=== PATIENT | male | born 1970 | race African-American/Black ===

== ENCOUNTER → 2020-01-03 | Outpatient (CLI) | payer OTHER ==
[2020-01-03 11:09] VITALS: BP 110/68
--- NOTE | 2020-01-03 11:09 | ER [facility] ASSESSMENT REPORT ---
Intake - In the Last 14 days Have you traveled outside [place]?: No Have you been in close contact with someone CONFIRMED: No Worked in Healthcare?: No - Symptoms Subjective Fever([place] feverish): No Chills: No Muscule Aches: No Runny Nose: No Sore Throat: No Cough (New or worsening chronic cough): No Shortness of breath: No Nausea or Vomiting: No Headache: No Abdominal Pain: No Diarrhea(3 or more loose stools in last 24 hours): No - Do you have any of the following Chronic lung disease: Asthma or emphysema or COPD: No Cystic Fibrosis: No Diabetes: No High Blood Pressure: No Cardiovascular Disease: No Chronic Kidney Disease: No Chronic Liver Disease: No Chronic blood disorder like Sickle Cell Disease: No Weak immune system due to disease or medication: No Neurologic condition that limits movement: No Developmental delay - Moderate to Severe: No Morbid Obesity (>100 pounds over ideal weight): No - Objective Temperature: 97.8 F Pulse Rate: 65 Respiratory Rate: 18 Blood Pressure: 110/68 O2 Sat by Pulse Oximetry: 97 Objective: Given above, testing performed: covid Disposition: Home; Selfcare General - General Stated Complaint: covid testing Time Seen by Provider: 01/03/20 10:20 Mode of Arrival: Ambulatory Information source: Patient - [facility] Notes: -year-old male presents [facility] clinic for COVID-19 testing. Patient reports no known contact with COVID positive individual. Patient reports he did have symptoms from 12/30 to 01/02/2020 of fever with T-max 101.0, chills. Patient states the symptoms resolved yesterday afternoon and he is currently asymptomatic. Denies any myalgia, runny nose, sore throat, cough, shortness of breath, GI upset, or headache. Past Medical History - General Information source: Patient - Social History Smoking Status: Former Smoker - Past Medical History Cardiac Medical History: Reports: None Pulmonary Medical History: Reports: None EENT Medical History: Reports: None Neurological Medical History: Reports: None Endocrine Medical History: Reports: None Renal/ Medical History: Reports: None Malignancy Medical History: Reports None GI Medical History: Reports: None Musculoskeletal Medical History: Reports None Skin Medical History: Reports None Psychiatric Medical History: Reports: None Traumatic Medical History: Reports: None Infectious Medical History: Reports: None Past Surgical History: Reports: None Physical Exam - General General appearance: Appears well, Alert In distress: None Notes: PHYSICAL EXAMINATION: GENERAL: Well-appearing and in no acute distress. HEAD: Atraumatic, normocephalic. EYES: sclera anicteric, conjunctiva are normal. ENT: nares patent. Moist mucous membranes. NECK: Normal range of motion, supple without lymphadenopathy. LUNGS: No increased work of breathing. Lung sounds CTAB and equal. No wheezes rales or rhonchi. HEART: Regular rate and rhythm without murmurs. ABDOMEN: Soft, nontender, normal bowel sounds, no guarding. EXTREMITIES: Normal range of motion, no pitting edema. No cyanosis. NEUROLOGICAL: A&O x 3. Normal speech. PSYCH: Normal mood, normal affect. SKIN: Warm, Dry, normal turgor, no rashes or lesions noted Patient Education/Counseling Counseling/Education: Patient presents with symptoms associated with possible Covid 19 infection. Patient does not have emergency worrying symptoms such as difficulty breathing, shortness of breath, chest pain, pressure, confusion or cyanosis. Patient appears suitable for discharge as vital signs are stable and patient is nontoxic in appearance. Good return precautions have been discussed with patient, patient verbalized understanding and is agreeable with discharge plan of care at this time. Guidance for worsening S/SX: As a person under investigation for Covid 19, the [place] department of Health and Human Services, division of public health advises you to adhere to the following guidance until your test results are reported to you. If your test result is positive, you will receive additional information from your provider and your local health department at that time. Remain at home until you are cleared by the health provider or public health authorities. Keep a log of visitors to your home, notify any visitors to your home of your is olation status. If you plan to move to a new address or leave the county, notify the local health department in your County. Call your doctor or seek care if you have an urgent medical need. Before seeking medical care, call ahead to get instructions from the provider before arriving at the medical office clinic or hospital. Notify them that you are being tested for the virus that causes Covid 19 so that arrangements can be made, as necessary, to prevent transmission to others in the healthcare setting. Next, notify the local health department in your county. If a medical emergency arises and you need to call 911, inform the first responders that you are being tested for the virus that causes Covid 19. Next, notify the local health department in your county. [facility] Discharge - Discharge Clinical Impression: Encounter for screening laboratory testing for COVID-19 virus Condition: Good Disposition: Home; Selfcare
== END ==
LOC: RDC 10:00
PROVIDERS: ATTEND Registered Nurse
DX: U07.1 COVID-19 (principal)
CPT/HCPCS: 87635; 99201; 99211; C9803